=== PATIENT | male | born 1970 | race Two or more races ===

== ENCOUNTER → 2018-03-22 | Emergency (ER) | payer OTHER ==
[~2018-03-22] VITALS: Ht 175.3 cm; Wt 108.9 kg
== END | disposition left against medical advice (07) ==
LOC: ER 03:13
DX: Z53.21 Procedure and treatment not carried out due to patient leaving prior to being seen by health care provider (principal)

== ENCOUNTER 2019-08-24 02:32 | Inpatient (IN) | payer OTHER ==
[~2019-08-24] VITALS: Ht 175.3 cm; Wt 240.0 kg
[2019-08-27] MEDS ORDERED: FLAGYL500MG PO (16:13)
[2019-08-27] MEDS ORDERED: CIPRO500 MG PO (16:13)
[2019-08-27] MEDS ORDERED: PEPCID AC20 MG PO (16:13)
[2019-08-27] MEDS ORDERED: INTESTINEX680 M1 PO (16:13)
== END 2019-08-27 16:43 | disposition home or self-care (01) | DRG 392 ==
LOC: ER 02:32 → SEC-K 12:36 → MEDJ 16:32 → MEDI 16:32
PROVIDERS: ADMIT Internal Medicine; ATTEND Internal Medicine
PROC: BW21ZZZ Computerized Tomography (CT Scan) of Abdomen and Pelvis (ICD-10-PCS; principal; 2019-08-24)
DX: K57.32 Diverticulitis of large intestine without perforation or abscess without bleeding (principal)

== ENCOUNTER 2020-03-05 11:35 | Emergency (ER) | payer OTHER ==
[~2020-03-05] VITALS: Ht 175.3 cm; Wt 97.5 kg
[~2020-03-05 11:35] MED LIST: CIPRO500 MG PO; FLAGYL500MG PO; INTESTINEX680 M1 PO; PEPCID AC20 MG PO
== END 2020-03-05 15:50 | disposition home or self-care (01) ==
LOC: ER 11:35
DX: K57.90 Diverticulosis of intestine, part unspecified, without perforation or abscess without bleeding (principal); R10.84 Generalized abdominal pain; F41.8 Other specified anxiety disorders

== ENCOUNTER 2022-10-28 01:46 | Emergency (ER) | payer OTHER ==
[~2022-10-28] VITALS: Ht 175.3 cm; Wt 100.7 kg
[2022-10-28] MEDS ORDERED: TAMS0.4C PO (04:42)
[2022-10-28] MEDS ORDERED: KETO10TA2 PO (04:42)
== END 2022-10-28 04:53 ==
LOC: ER 01:46
DX: N23 Unspecified renal colic (principal); N21.0 Calculus in bladder; N20.0 Calculus of kidney; K76.0 Fatty (change of) liver, not elsewhere classified